=== PATIENT | male | born 1975 | race Caucasian/White ===

== ENCOUNTER 2017-01-17 20:17 | Emergency (ER) | payer OTHER ==
[~2017-01-17] VITALS: Ht 172.7 cm; Wt 127.0 kg
[2017-01-17 23:19] LABS: ABSOLUTE NEUTROPHILS 6.7 thou/uL (1.4-8.2); BASOPHILS 0.8 % (0.0-2.0); EOSINOPHILS 3.3 % (0.0-3.0); HEMATOCRIT 43.8 % (42.0-52.0); HEMOGLOBIN 15.2 gm/dL (14.0-18.0); LYMPHOCYTES 20.2 % (24.0-44.0); MCH 29.6 pg (26.0-34.0); MCHC 34.7 g/dL (28.0-37.0); MCV 85.3 fL (80.0-100.0); MONOCYTES 6.8 % (1.0-8.0); PLATELET COUNT 257 thou/uL (150-400); POLYS 68.9 % (36.0-66.0); RBC 5.13 mil/uL (4.50-6.00); RDW 13.3 % (10.5-14.5); WBC 9.7 thou/uL (4.0-11.0)
[2017-01-17 23:25] LABS: MANUAL DIFF NO
[2017-01-17 23:31] LABS: CALCIUM 8.7 mg/dL (8.5-10.1); CREATININE 0.8 mg/dL (0.7-1.3); POTASSIUM 3.6 mmol/L (3.5-5.1)
[2017-01-17 23:35] LABS: ALBUMIN 3.5 g/dL (3.4-5.0); TOTAL BILIRUBIN 0.5 mg/dL (<0.1-1.0); TOTAL PROTEIN 8.2 g/dL (6.4-8.2); URIC ACID* 7.5 mg/dL (2.6-7.2)
[2017-01-17] MEDS ORDERED: NORCO 5-325 TA1 EACH PO (23:40)
[2017-01-18 01:45] VITALS: BP 147/92
== END 2017-01-18 01:45 | disposition home or self-care (01) ==
LOC: ER 20:17
PROVIDERS: Emergency Medicine
DX: S62.001A Unspecified fracture of navicular [scaphoid] bone of right wrist, initial encounter for closed fracture (principal); X58.XXXA Exposure to other specified factors, initial encounter; Y93.89 Activity, other specified; Y92.89 Other specified places as the place of occurrence of the external cause; Y99.9 Unspecified external cause status